=== PATIENT | male | born 1990 ===

== ENCOUNTER 2021-08-23 10:21 | Emergency (ER) | payer OTHER ==
[~2021-08-23] VITALS: Ht 180.3 cm; Wt 108.9 kg
[2021-08-23] MEDS ORDERED: ALBU90OI INH ×2 (10:47→11:56)
== END 2021-08-23 12:03 | disposition home or self-care (01) ==
LOC: ER 10:21
DX: J45.901 Unspecified asthma with (acute) exacerbation (principal); Z91.018 Allergy to other foods
CPT/HCPCS: 99284; A9270; J1100

== ENCOUNTER 2021-09-06 09:43 | Emergency (ER) | payer OTHER ==
[~2021-09-06] VITALS: Ht 180.3 cm; Wt 108.9 kg
[~2021-09-06 09:43] MED LIST: ALBU90OI INH
[2021-09-06] MEDS ORDERED: BENZ100A PO (10:58)
== END 2021-09-06 11:14 | disposition home or self-care (01) ==
LOC: ER 09:43
DX: J45.909 Unspecified asthma, uncomplicated (principal); Z79.899 Other long term (current) drug therapy; Z91.018 Allergy to other foods; Z20.822 Contact with and (suspected) exposure to COVID-19
CPT/HCPCS: 71045; 99284-25

== ENCOUNTER 2021-09-30 22:23 | Emergency (ER) | payer SELFPAY ==
[~2021-09-30] VITALS: Ht 180.3 cm; Wt 108.9 kg
[~2021-09-30 22:23] MED LIST changes: +BENZ100A PO
[2021-10-01] MEDS ORDERED: PRED20 PO (00:17)
== END 2021-10-01 00:28 | disposition home or self-care (01) ==
LOC: ER 22:23
DX: J45.901 Unspecified asthma with (acute) exacerbation (principal); F17.200 Nicotine dependence, unspecified, uncomplicated
CPT/HCPCS: 94640; 99284-25; A9270; J7512